=== PATIENT | female | born 1975 | race Caucasian/White ===

== ENCOUNTER → 2023-10-23 06:22 | Day surgery (SDC) | payer BC, SELFPAY | LOC: GI 06:22 | PROVIDERS: ATTENDING PHYSICIAN Internal Medicine; FAMILY PHYSICIAN Family Medicine | DX: Z12.11 Encounter for screening for malignant neoplasm of colon (principal); D12.3 Benign neoplasm of transverse colon | CPT/HCPCS: 45385; 88305 ==

== ENCOUNTER 2024-03-06 20:51 | Emergency (ER) | payer BC, SELFPAY ==
[2024-03-06 20:56] VITALS: BP 142/85
[2024-03-06 22:42] VITALS: BP 137/82
--- NOTE | 2024-03-06 22:52 | ED.GENMED ---
History of Present Illness
General
Chief Complaint: Musculo-Skeletal Complaint
Source: patient
Exam Limitations: none
Time Seen by Provider: 03/06/24 22:10
Nursing documentation reviewed up to this point in time: agreed with
History of Present Illness
History of Present Illness:
48-year-old female presents to the emergency room for evaluation of bruising on the right ring finger. Patient reports that she was holding a knife in her right hand tonight and she noticed some discomfort on the palmar aspect of the right fourth
digit. She says that she noted some bruising in the area. She does recall any direct trauma. Came to the emergency room to be assessed.
Review of Systems
Review of Systems
All Other Systems: ROS reviewed and negative except as documented in HPI and ROS
Skin: Reports other (Presents with right ring finger)
Phy Exam
Physical Exam
Physical Exam:
General: Well appearing and non-toxic
HEENT: protecting airway
Neck: appears supple
CV: No evidence of cyanosis
Resp: No accessory muscle use
Abd: Non-distended
Extremities: Patient has minor ecchymosis on the palmar aspect of the right fourth digit extending from the crease at the MCP joint to the crease of the PIP joint; she has some localized tenderness in this area; she has no tenderness in the rest of
the hand and is able to make a fist and move digits through good range of motion; she has a good pulse right radial
Neuro: Alert
Psych: Normal affect
Skin: Intact
Scores
Heart Failure Risk
Heart Failure Risk Score: Not Applicable
Heart Score for Chest Pain Patients
STEMI patient?: Not applicable
Withdrawal Assessment of Alcohol
Withdrawal Assessment Completed?: Not applicable
Course
Orders/Labs/Results
Orders:
Orders
03/06/24 20:59
CR Hand - Right Min 3 Views Urgent
Comment:
Reason For Exam: injury
Vital Signs
Initial and Last Documented VS:
Initial Vital Signs
Temp Pulse Resp BP Pulse Ox
36.8 C 79 18 142/85 99
03/06/24 20:56 03/06/24 20:56 03/06/24 20:56 03/06/24 20:56 03/06/24 20:56
Last Documented Vital Signs
Temp Pulse Resp BP Pulse Ox
36.8 C 74 18 137/82 99
03/06/24 20:56 03/06/24 22:42 03/06/24 22:42 03/06/24 22:42 03/06/24 20:56
MDM/Problems Addressed
Differential Diagnosis Includes:
Hematoma, fracture
MDM/Problems Addressed:
48-year-old female presents for evaluation of bruising and pain in the right fourth digit that she noticed when she was using a knife tonight. She cannot recall any specific injury. X-ray of the hand reviewed shows no acute fracture. Advised ice
and NSAIDs as needed for finger hematoma. Stable for discharge.
*Radiology
Radiology exam reviewed: preliminary read by ED provider and radiology read reviewed
*Pulse Oximetry
Patient hypoxic: no
*Critical Care Note
Total Time (30-74mins, 75-104mins- exclusive of procedures): Not Applicable
Data Reviewed
Source: patient
ED Attending Note
-
Portions of this chart may have been created with voice recognition software.� Occasional wrong word or��sound alike� substitutions may have occurred due to the inherent limitations of voice recognition software.
Discharge Plan
Departure
Patient Disposition: Home (Routine Discharge)
Date of Disposition: 03/06/24
Time of Disposition: 22:27
Patient with high blood pressure during this ER visit?: No
Discharge Problem:
Hematoma of right ring finger
Instructions: Common Finger Injuries ED
Referrals:
Elena Gallegos MD [Family Provider] - As needed
Activity Restrictions/Additional Instructions:
Thank you for visiting the Emergency Department at [facility].
1. Please schedule a follow up appointment as directed. Call first thing tomorrow morning to make an appointment.
2. If indicated, please take your medications as instructed and indicated on discharge paperwork.
3. If any of your symptoms do not improve, or persist, or become more severe within 6-12 hours, please return to the emergency department for further care.
4. Please return to the emergency department if you develop a headache, neck pain/stiffness, fever greater than 100.4F, chest pain, shortness of breath, persistent nausea, vomiting, slurred speech, difficulty walking, numbness/tingling, weakness,
signs of infection or any other symptoms that are worrisome to you.
Please call [phone] if you have any questions.
Interventions
Interventions:
*Risk Screen - Suicide Last Done: 03/06/24 20:56
*General Assessment Last Done: 03/06/24 20:56
*Neglect/Abuse Screening Last Done: 03/06/24 20:56
*Nursing Disposition Last Done: 03/06/24 22:42
ED-Musculoskeletal Assessment Last Done: 03/06/24 22:23
Discharge Date and Time
Discharge Date/Time: 03/06/24 22:42
Print Language: SINHALA
== END 2024-03-06 22:42 | disposition home or self-care (01) ==
LOC: EMR 20:51
PROVIDERS: EMERGENCY PHYSICIAN Emergency Medicine; FAMILY PHYSICIAN Family Medicine
DX: S60.041A Contusion of right ring finger without damage to nail, initial encounter (principal); W26.0XXA Contact with knife, initial encounter
CPT/HCPCS: 99283; 73130